=== PATIENT | female | born 1985 | race Caucasian/White ===

== ENCOUNTER 2022-08-02 02:46 | Emergency (ER) | payer BC, OTHER ==
[~2022-08-02] VITALS: Ht 162.6 cm; Wt 56.8 kg
[2022-08-02 03:01] VITALS: BP 120/70
[2022-08-02] MEDS ORDERED: HYDR-4902 PO (04:30)
[2022-08-02] MEDS ORDERED: ONDA-144 PO (04:30)
[2022-08-02] MEDS ORDERED: cefTRIAXone SOD 1,000 MG VL IM ONE (04:30)
== END 2022-08-02 04:43 | disposition home or self-care (01) ==
LOC: ER 02:46
DX: L03.011 Cellulitis of right finger (principal); Z90.710 Acquired absence of both cervix and uterus; Z90.89 Acquired absence of other organs; Z98.890 Other specified postprocedural states
CPT/HCPCS: 96372; 99283; J0696